=== PATIENT | male | born 1990 | race Caucasian/White ===

== ENCOUNTER 2016-04-15 23:46 | Emergency (ER) | payer OTHER ==
[~2016-04-15] VITALS: Ht 182.9 cm; Wt 68.2 kg
[2016-04-15 23:55] VITALS: BP 122/79; TEMP 98.5
[2016-04-15] MEDS ORDERED: PROZAC40 MG (23:58)
[2016-04-16 01:38] VITALS: PULSE 76
== END 2016-04-16 01:44 | disposition home or self-care (01) ==
LOC: COL.ER 23:46
DX: S09.90XA Unspecified injury of head, initial encounter (principal); S01.312A Laceration without foreign body of left ear, initial encounter; W10.8XXA Fall (on) (from) other stairs and steps, initial encounter